=== PATIENT | male | born 1940 | race African-American/Black ===

== ENCOUNTER 2023-07-12 10:44 | Inpatient (IN) | payer OTHER, MEDICAID ==
[~2023-07-12] VITALS: Ht 188 cm; Wt 90.7 kg
[2023-07-12 10:44] VITALS: BP_SYST 107; PULSE 77; RESP 19; TEMP 98.1; O2SAT 99
[2023-07-12 11:20] LABS: BASOPHILS % (AUTO) 0.3 % (0.0-2.0); EOSINOPHILS # (AUTO) 0.9 K/uL (0.0-0.4); EOSINOPHILS % (AUTO) 13.3 % (0.0-4.0); HEMATOCRIT 29.2 % (36-54); HEMOGLOBIN 9.8 g/dL (14.0-18.0); LYMPHOCYTES # (AUTO) 0.9 K/uL (1.0-5.5); LYMPHOCYTES % (AUTO) 13.4 % (20.5-51.5); MEAN CORPUSCULAR HEMOGLOBIN 31 pg (27-31); MEAN CORPUSCULAR HGB CONC 34 % (32-36); MEAN CORPUSCULAR VOLUME 93 fL (79.0-98.0); MONOCYTES # (AUTO) 0.3 K/uL (0.0-1.0); NEUTROPHILS # (AUTO) 4.6 K/uL (1.8-7.7); PLATELET COUNT (AUTO) 145 K/uL (130-430); RED BLOOD CELL COUNT(AUTO) 3.13 MIL/uL (4.2-6.2); RED CELL DISTRIBUTION WIDTH 19.7 % (9.0-15.0); WHITE BLOOD COUNT (AUTO) 6.7 K/uL (4.8-10.8)
[2023-07-12] MEDS ORDERED: LIP20 GT (11:33)
[2023-07-12] MEDS ORDERED: ATEN-41 GT (11:33)
[2023-07-12] MEDS ORDERED: LEVE500T9 GT (11:33)
[2023-07-12] MEDS ORDERED: ALBMDI INH (11:33)
[2023-07-12] MEDS ORDERED: HYDR50TA45 GT (11:33)
[2023-07-12] MEDS ORDERED: FAMO20TA8 GT (11:33)
[2023-07-12] MEDS ORDERED: EPOE40003 SUBCUT (11:33)
[2023-07-12] MEDS ORDERED: FOLI-43 GT (11:33)
[2023-07-12] MEDS ORDERED: RISP0.5T5 GT (11:33)
[2023-07-12] MEDS ORDERED: ASPI-859 GT (11:33)
[2023-07-12] MEDS ORDERED: TYLL650 GT (11:33)
[2023-07-12] MEDS ORDERED: VITA1CAP GT (11:33)
[2023-07-12] MEDS ORDERED: RIVA2.5T GT (11:33)
[2023-07-12] MEDS ORDERED: CARB1TAB8 GT (11:33)
[2023-07-12] MEDS ORDERED: ISO10 GT (11:33)
[2023-07-12] MEDS ORDERED: ASCO500T20 GT (11:33)
[2023-07-12] MEDS ORDERED: FURO-149 GT (11:33)
[2023-07-12] MEDS ORDERED: DONE10TA44 GT (11:33)
[2023-07-12] MEDS ORDERED: VITD2000 GT (11:33)
[2023-07-12] MEDS ORDERED: FEOSOL GT (11:33)
[2023-07-12] MEDS ORDERED: POLY17PO4 GT (11:33)
[2023-07-12] MEDS ORDERED: AMLO5TAB4 GT (11:33)
[2023-07-12 11:34] LABS: INR 1.2 (0.80-1.20); PROTHROMBIN TIME 12.1 SECS (9.5-12.5)
[2023-07-12 11:39] LABS: ALANINE AMINOTRANSFERASE 8 U/L (12-78); ANION GAP 14 (5-15); ASPARTATE AMINOTRANSFERASE 30 U/L (10-37); BILIRUBIN,DIRECT 0.3 mg/dL (0.0-0.3); CARBON DIOXIDE 25 mmol/L (23-29); CHLORIDE 100 mmol/L (98-107); CREATININE 6.54 mg/dL (0.55-1.30); GLUCOSE 103 mg/dL (74-106); POTASSIUM 4.6 mmol/L (3.5-5.1); SODIUM SERUM 139 mmol/L (136-145); TOTAL BILIRUBIN 0.6 mg/dL (0.0-1.0); TOTAL PROTEIN, SERUM 9.1 g/dL (6.4-8.3)
[2023-07-12 11:41] LABS: UREA NITROGEN, BLOOD 114 mg/dL (8-21)
[2023-07-12] MEDS ORDERED: LORazepam 2 MG/ML VIAL IVP PRN (22:15)
[2023-07-12] MEDS ORDERED: ALBUTEROL MDI INHALATION 8 GM INH INH PRN (22:15)
[2023-07-12] MEDS ORDERED: ONDANSETRON HCL 4 MG/2 ML VIAL IVP PRN (22:15)
[2023-07-12] MEDS ORDERED: ACETAMINOPHEN 650 MG/20.3 ML UDC GT PRN (22:15)
[2023-07-13] MEDS: D5/0.45 NS 1,000 ML IV SCH (00:11)
[2023-07-13 04:27] LABS: BILIRUBIN,URINE 2+ (NEGATIVE); BLOOD, URINE 3+ (NEGATIVE); CLARITY/URINE CLOUDY (CLEAR); COLOR,URINE BROWN (YELLOW); GLUCOSE,URINE NEGATIVE (NEGATIVE); KETONES,URINE TRACE (NEGATIVE); LEUKOCYTE ESTERASE ,URINE 2+ (NEGATIVE); NITRITE, URINE NEGATIVE (NEGATIVE); PH,URINE 6.5 (5.0-8.0); PROTEIN URINE 3+ (NEGATIVE); UROBILINOGEN,URINE 0.2 (0.2-1.0)
[2023-07-13 06:28] LABS: BACTERIA,URINE MODERATE /HPF (None Seen); MUCUS,URINE 1+ /LPF (None Seen); WBC,URINE 20-50 /HPF (0-3)
[2023-07-13 07:33] LABS: BASOPHILS % (AUTO) 0.3 % (0.0-2.0); EOSINOPHILS # (AUTO) 0.8 K/uL (0.0-0.4); EOSINOPHILS % (AUTO) 13.8 % (0.0-4.0); HEMATOCRIT 31.8 % (36-54); HEMOGLOBIN 10.4 g/dL (14.0-18.0); LYMPHOCYTES % (AUTO) 17.5 % (20.5-51.5); MEAN CORPUSCULAR HEMOGLOBIN 31 pg (27-31); MEAN CORPUSCULAR HGB CONC 33 % (32-36); MEAN CORPUSCULAR VOLUME 94 fL (79.0-98.0); MONOCYTES # (AUTO) 0.4 K/uL (0.0-1.0); MONOCYTES % (AUTO) 6.3 % (1.7-9.3); NEUTROPHILS # (AUTO) 3.7 K/uL (1.8-7.7); NEUTROPHILS % (AUTO) 62.1 % (40.0-70.0); PLATELET COUNT (AUTO) 142 K/uL (130-430); RED CELL DISTRIBUTION WIDTH 19.7 % (9.0-15.0); WHITE BLOOD COUNT (AUTO) 5.9 K/uL (4.8-10.8)
[2023-07-13 07:45] LABS: ANION GAP 16 (5-15); CALCIUM 9.7 mg/dL (8.4-11.0); CARBON DIOXIDE 24 mmol/L (23-29); CHLORIDE 99 mmol/L (98-107); CREATININE 7.33 mg/dL (0.55-1.30); GLUCOSE 97 mg/dL (74-106); PHOSPHORUS 5.9 mg/dL (2.7-4.5); POTASSIUM 4.9 mmol/L (3.5-5.1); SODIUM SERUM 139 mmol/L (136-145)
[2023-07-13 07:49] LABS: UREA NITROGEN, BLOOD 124 mg/dL (8-21)
[2023-07-13] MEDS: ASPIRIN 81 MG TABLET(ECOTRIN) GT SCH (09:00)
[2023-07-13] MEDS: ISOSORBIDE DINITRATE 10 MG TABLET (ISORDIL) GT SCH (09:00)
[2023-07-13] MEDS: amLODIPine BESYLATE 5 MG TABLET GT SCH (09:00)
[2023-07-13] MEDS: ATENOLOL 25 MG TABLET(TENORMIN) GT SCH (09:00)
[2023-07-13] MEDS: CARBIDOPA/LEVODOPA 10/100 MG TABLET GT SCH (09:00)
[2023-07-13] MEDS: VITAMIN B COMPLEX 1 CAP/TAB GT SCH (09:00)
[2023-07-13] MEDS ORDERED: RIVAROXABAN 2.5 MG GT SCH (09:00)
[2023-07-13] MEDS: FOLIC ACID 1 MG TABLET GT SCH (09:00)
[2023-07-13 09:10] VITALS: BP_SYST 106; PULSE 79; RESP 18; TEMP 97.9; O2SAT 98
[2023-07-13] MEDS ORDERED: ALBUTEROL SULFATE 0.083% 2.5 MG/3 ML VIAL.NEB INH PRN (09:15)
[2023-07-13] MEDS: FUROSEMIDE 40 MG TABLET GT SCH (09:40)
[2023-07-13] MEDS: hydrALAZINE HCL 25 MG TABLET GT SCH (09:40)
[2023-07-13] MEDS: FAMOTIDINE 20 MG TABLET GT SCH (09:41)
[2023-07-13] MEDS: ASCORBIC ACID 500 MG TABLET GT SCH (09:41)
[2023-07-13] MEDS: CHOLECALCIFEROL (VITAMIN D3) 2,000 UNIT TABLET GT SCH (09:42)
[2023-07-13] MEDS: FERROUS SULFATE 300 MG/5 ML UDC GT SCH (09:42)
[2023-07-13] MEDS: ATORVASTATIN 20 MG TABLET GT SCH (09:42)
[2023-07-13] MEDS: levETIRAcetam 500 MG TABLET GT SCH (09:43)
[2023-07-13] MEDS: POLYETHYLENE GLYCOL 3350, 17 GM/ POWD.PACK GT SCH (09:43)
[2023-07-13 10:00] VITALS: BP_SYST 106; PULSE 78; RESP 18; TEMP 97.8
[2023-07-13 10:13] VITALS: PULSE 79; O2SAT 98
[2023-07-13 11:33] VITALS: O2SAT 98
[2023-07-13] MEDS ORDERED: cefTRIAXone 1 GM in D5W 50 ML IV SCH (12:00)
[2023-07-13] MEDS ORDERED: RIVAROXABAN 15 MG TABLET PO SCH (18:00)
[2023-07-13 20:00] VITALS: BP_SYST 125; PULSE 70; RESP 18; TEMP 98.2; O2SAT 100
[2023-07-13 20:20] VITALS: O2SAT 100
[2023-07-13] MEDS ORDERED: VANCOMYCIN HCL 1,000 MG in NS 250 ML IV SCH (21:00)
[2023-07-13] MEDS: VANCOMYCIN HCL 1,000 MG in NS 250 ML IV ONE (23:22)
[2023-07-13] MEDS: DONEPEZIL HCL 5 MG TABLET (ARICEPT) GT SCH (23:26)
[2023-07-13] MEDS: APIXABAN 2.5 MG TABLET PO SCH (23:27)
[2023-07-14] VITALS (7 sets, daily range): BP systolic 121–155; PULSE 62–68; RESP 16–17; TEMP 96.2–97.7; O2SAT 98–100
[2023-07-14 06:37] LABS: BASOPHILS % (AUTO) 0.4 % (0.0-2.0); EOSINOPHILS % (AUTO) 14.4 % (0.0-4.0); HEMATOCRIT 28.9 % (36-54); HEMOGLOBIN 9.7 g/dL (14.0-18.0); LYMPHOCYTES # (AUTO) 1.1 K/uL (1.0-5.5); LYMPHOCYTES % (AUTO) 16.1 % (20.5-51.5); MEAN CORPUSCULAR HEMOGLOBIN 31 pg (27-31); MEAN CORPUSCULAR HGB CONC 34 % (32-36); MEAN CORPUSCULAR VOLUME 94 fL (79.0-98.0); MONOCYTES # (AUTO) 0.5 K/uL (0.0-1.0); MONOCYTES % (AUTO) 6.9 % (1.7-9.3); NEUTROPHILS # (AUTO) 4.3 K/uL (1.8-7.7); NEUTROPHILS % (AUTO) 62.2 % (40.0-70.0); PLATELET COUNT (AUTO) 132 K/uL (130-430); RED BLOOD CELL COUNT(AUTO) 3.08 MIL/uL (4.2-6.2); WHITE BLOOD COUNT (AUTO) 6.9 K/uL (4.8-10.8)
[2023-07-14 07:12] LABS: ALANINE AMINOTRANSFERASE 7 U/L (12-78); ALBUMIN 2.9 g/dL (3.4-4.8); ANION GAP 17 (5-15); ASPARTATE AMINOTRANSFERASE 22 U/L (10-37); CALCIUM 9.6 mg/dL (8.4-11.0); CARBON DIOXIDE 23 mmol/L (23-29); CHLORIDE 99 mmol/L (98-107); GLUCOSE 101 mg/dL (74-106); PHOSPHORUS 6.4 mg/dL (2.7-4.5); POTASSIUM 4.6 mmol/L (3.5-5.1); SODIUM SERUM 139 mmol/L (136-145); TOTAL BILIRUBIN 0.5 mg/dL (0.0-1.0); TOTAL PROTEIN, SERUM 8.7 g/dL (6.4-8.3); VANCOMYCIN,RANDOM 18.8 ug/mL (20.0-30.0)
[2023-07-14 07:30] LABS: CREATININE 8.06 mg/dL (0.55-1.30); UREA NITROGEN, BLOOD 136 mg/dL (8-21)
[2023-07-14 08:46] LABS: ERYTHROCYTE SEDIMENTATION RATE 128 MM/HR (0-15)
[2023-07-14] MEDS: VANCOMYCIN HCL 1,000 MG in NS 250 ML IV ONE (14:52)
[2023-07-14] MEDS: EPOETIN ALFA-EPBX 10,000 UNITS/ML VIAL SUBCUT SCH (17:00)
[2023-07-14] MEDS ORDERED: EPOETIN ALFA 4,000 UNITS/ML VIAL SUBCUT SCH (17:00)
[2023-07-14] MEDS: HEPARIN SODIUM,PORCINE 5,000 UNITS/ML VIAL MC ONE (17:33)
[2023-07-15] VITALS (7 sets, daily range): BP systolic 103–152; PULSE 64–68; RESP 16–18; TEMP 97.2–98; O2SAT 97–100
[2023-07-15 06:58] LABS: BASOPHILS % (AUTO) 0.5 % (0.0-2.0); EOSINOPHILS % (AUTO) 20.4 % (0.0-4.0); HEMATOCRIT 30.4 % (36-54); HEMOGLOBIN 10.2 g/dL (14.0-18.0); LYMPHOCYTES # (AUTO) 0.6 K/uL (1.0-5.5); LYMPHOCYTES % (AUTO) 11.7 % (20.5-51.5); MEAN CORPUSCULAR HEMOGLOBIN 31 pg (27-31); MEAN CORPUSCULAR HGB CONC 33 % (32-36); MEAN CORPUSCULAR VOLUME 93 fL (79.0-98.0); MONOCYTES # (AUTO) 0.3 K/uL (0.0-1.0); MONOCYTES % (AUTO) 5.6 % (1.7-9.3); NEUTROPHILS # (AUTO) 2.9 K/uL (1.8-7.7); NEUTROPHILS % (AUTO) 61.8 % (40.0-70.0); PLATELET COUNT (AUTO) 89 K/uL (130-430); RED BLOOD CELL COUNT(AUTO) 3.27 MIL/uL (4.2-6.2); RED CELL DISTRIBUTION WIDTH 19.6 % (9.0-15.0); WHITE BLOOD COUNT (AUTO) 4.8 K/uL (4.8-10.8)
[2023-07-15 07:43] LABS: TOTAL IRON BIND. CAPACITY 129 ug/dL (250-450)
[2023-07-15 08:13] LABS: ERYTHROCYTE SEDIMENTATION RATE > 130 MM/HR (0-15)
[2023-07-15 08:24] LABS: ANION GAP 12 (5-15); CALCIUM 9.5 mg/dL (8.4-11.0); CARBON DIOXIDE 27 mmol/L (23-29); CHLORIDE 97 mmol/L (98-107); CREATININE 5.28 mg/dL (0.55-1.30); GLUCOSE 97 mg/dL (74-106); PHOSPHORUS 3.8 mg/dL (2.7-4.5); SODIUM SERUM 136 mmol/L (136-145); UREA NITROGEN, BLOOD 80 mg/dL (8-21)
[2023-07-15] MEDS: BALSAM PERU/CASTOR OIL 56.7 GM OINT...G. TP SCH (09:57)
[2023-07-15] MEDS: HEPARIN SODIUM,PORCINE 5,000 UNITS/ML VIAL MC ONE (10:00)
[2023-07-16] VITALS (7 sets, daily range): BP systolic 124–146; PULSE 61–89; RESP 16–20; TEMP 95.5–97.7; O2SAT 96–100
[2023-07-16 07:20] LABS: BASOPHILS % (AUTO) 0.3 % (0.0-2.0); EOSINOPHILS % (AUTO) 20.3 % (0.0-4.0); HEMATOCRIT 30.7 % (36-54); HEMOGLOBIN 10.2 g/dL (14.0-18.0); LYMPHOCYTES # (AUTO) 0.6 K/uL (1.0-5.5); LYMPHOCYTES % (AUTO) 11.4 % (20.5-51.5); MEAN CORPUSCULAR HEMOGLOBIN 31 pg (27-31); MEAN CORPUSCULAR HGB CONC 33 % (32-36); MEAN CORPUSCULAR VOLUME 93 fL (79.0-98.0); MONOCYTES # (AUTO) 0.4 K/uL (0.0-1.0); MONOCYTES % (AUTO) 7.5 % (1.7-9.3); NEUTROPHILS % (AUTO) 60.5 % (40.0-70.0); PLATELET COUNT (AUTO) 65 K/uL (130-430); RED BLOOD CELL COUNT(AUTO) 3.31 MIL/uL (4.2-6.2); WHITE BLOOD COUNT (AUTO) 4.9 K/uL (4.8-10.8)
[2023-07-16 07:29] LABS: ERYTHROCYTE SEDIMENTATION RATE 112 MM/HR (0-15)
[2023-07-16 08:10] LABS: ANION GAP 8 (5-15); CARBON DIOXIDE 29 mmol/L (23-29); CHLORIDE 97 mmol/L (98-107); CREATININE 3.79 mg/dL (0.55-1.30); GLUCOSE 114 mg/dL (74-106); PHOSPHORUS 3.4 mg/dL (2.7-4.5); POTASSIUM 3.6 mmol/L (3.5-5.1); SODIUM SERUM 134 mmol/L (136-145); UREA NITROGEN, BLOOD 49 mg/dL (8-21); VANCOMYCIN,RANDOM 18.3 ug/mL (20.0-30.0)
[2023-07-16] MEDS: ALBUMIN HUMAN 25% 100 ML IV ONE (13:57)
[2023-07-17] VITALS (7 sets, daily range): BP systolic 130–152; PULSE 55–89; RESP 16–18; TEMP 96.1–97.7; O2SAT 98–99
[2023-07-17 05:48] LABS: ALANINE AMINOTRANSFERASE 14 U/L (12-78); ALBUMIN 2.8 g/dL (3.4-4.8); ANION GAP 8 (5-15); ASPARTATE AMINOTRANSFERASE 27 U/L (10-37); CALCIUM 8.8 mg/dL (8.4-11.0); CARBON DIOXIDE 28 mmol/L (23-29); CHLORIDE 100 mmol/L (98-107); CREATININE 3.55 mg/dL (0.55-1.30); GLUCOSE 89 mg/dL (74-106); POTASSIUM 3.9 mmol/L (3.5-5.1); SODIUM SERUM 136 mmol/L (136-145); TOTAL BILIRUBIN 0.4 mg/dL (0.0-1.0); TOTAL PROTEIN, SERUM 7.9 g/dL (6.4-8.3); UREA NITROGEN, BLOOD 45 mg/dL (8-21)
[2023-07-17] MEDS: VANCOMYCIN HCL 750 MG in NS 250 ML IV ONE (12:14)
[2023-07-18] VITALS (10 sets, daily range): BP systolic 117–152; PULSE 72–89; RESP 14–20; TEMP 96.8–98.7; O2SAT 96–100
[2023-07-18 07:01] LABS: BASOPHILS % (AUTO) 0.4 % (0.0-2.0); EOSINOPHILS # (AUTO) 1.3 K/uL (0.0-0.4); EOSINOPHILS % (AUTO) 24.6 % (0.0-4.0); HEMATOCRIT 31.1 % (36-54); HEMOGLOBIN 10.3 g/dL (14.0-18.0); LYMPHOCYTES # (AUTO) 0.8 K/uL (1.0-5.5); LYMPHOCYTES % (AUTO) 15.3 % (20.5-51.5); MEAN CORPUSCULAR HEMOGLOBIN 31 pg (27-31); MEAN CORPUSCULAR HGB CONC 33 % (32-36); MEAN CORPUSCULAR VOLUME 93 fL (79.0-98.0); MONOCYTES # (AUTO) 0.3 K/uL (0.0-1.0); MONOCYTES % (AUTO) 5.1 % (1.7-9.3); NEUTROPHILS # (AUTO) 2.8 K/uL (1.8-7.7); NEUTROPHILS % (AUTO) 54.6 % (40.0-70.0); PLATELET COUNT (AUTO) 51 K/uL (130-430); RED BLOOD CELL COUNT(AUTO) 3.34 MIL/uL (4.2-6.2); RED CELL DISTRIBUTION WIDTH 19.6 % (9.0-15.0); WHITE BLOOD COUNT (AUTO) 5.2 K/uL (4.8-10.8)
[2023-07-18 08:39] LABS: ANION GAP 10 (5-15); CALCIUM 8.5 mg/dL (8.4-11.0); CARBON DIOXIDE 27 mmol/L (23-29); CHLORIDE 98 mmol/L (98-107); CREATININE 4.13 mg/dL (0.55-1.30); GLUCOSE 93 mg/dL (74-106); PHOSPHORUS 3.5 mg/dL (2.7-4.5); POTASSIUM 3.9 mmol/L (3.5-5.1); SODIUM SERUM 135 mmol/L (136-145); UREA NITROGEN, BLOOD 54 mg/dL (8-21)
[2023-07-18 09:14] LABS: ERYTHROCYTE SEDIMENTATION RATE 93 MM/HR (0-15)
[2023-07-19 21:38] LABS: VANCOMYCIN,RANDOM 16.4 ug/mL (20.0-30.0)
== END 2023-07-18 22:50 | DRG 193 ==
LOC: SED 10:44 → STU 16:01 → SMU 07-14 13:09
PROVIDERS: ADMIT Preventive Medicine Preventive Medicine/Occupational Environmental Medicine; ATTEND Preventive Medicine Preventive Medicine/Occupational Environmental Medicine
PROC: 5A1D70Z Performance of Urinary Filtration, Intermittent, Less than 6 Hours Per Day (ICD-10-PCS; principal; 2023-07-14)
PROC: 5A1D70Z Performance of Urinary Filtration, Intermittent, Less than 6 Hours Per Day (ICD-10-PCS; 2023-07-15)
PROC: 5A1D70Z Performance of Urinary Filtration, Intermittent, Less than 6 Hours Per Day (ICD-10-PCS; 2023-07-16)
PROC: 5A1D70Z Performance of Urinary Filtration, Intermittent, Less than 6 Hours Per Day (ICD-10-PCS; 2023-07-18)
DX: J18.9 Pneumonia, unspecified organism (principal); N18.6 End stage renal disease; I12.0 Hypertensive chronic kidney disease with stage 5 chronic kidney disease or end stage renal disease; E44.0 Moderate protein-calorie malnutrition; N13.6 Pyonephrosis; I95.3 Hypotension of hemodialysis; D63.1 Anemia in chronic kidney disease; D69.6 Thrombocytopenia, unspecified; E78.5 Hyperlipidemia, unspecified; E83.39 Other disorders of phosphorus metabolism; E83.41 Hypermagnesemia; K40.90 Unilateral inguinal hernia, without obstruction or gangrene, not specified as recurrent; F03.90 Unspecified dementia, unspecified severity, without behavioral disturbance, psychotic disturbance, mood disturbance, and anxiety; K21.9 Gastro-esophageal reflux disease without esophagitis; E88.09 Other disorders of plasma-protein metabolism, not elsewhere classified; Z99.2 Dependence on renal dialysis; Z79.01 Long term (current) use of anticoagulants; Z86.73 Personal history of transient ischemic attack (TIA), and cerebral infarction without residual deficits; Z68.25 Body mass index [BMI] 25.0-25.9, adult; Z79.899 Other long term (current) drug therapy; Z88.2 Allergy status to sulfonamides; N43.3 Hydrocele, unspecified; N43.41 Spermatocele of epididymis, single; K59.00 Constipation, unspecified; K57.30 Diverticulosis of large intestine without perforation or abscess without bleeding; Z90.49 Acquired absence of other specified parts of digestive tract; Z93.1 Gastrostomy status
CPT/HCPCS: 36415; 70450-TC; 71045; 76870; 80048; 80053; 80076; 80202; 81000; 81001; 81015; 83540; 83550; 83605; 83735; 83880; 84100; 84484; 85025; 85610; 85651; 85730; 87040; 87081; 87086; 90935; 90937; 93005; 94760; 99285; G0378; J0696; J1644; J3370; J7050; J7060; Q5106